=== PATIENT | female | born 1965 | race Caucasian/White ===

== ENCOUNTER → 2018-08-30 | Outpatient (CLI) | payer BC ==
[~2018-08-30] VITALS: Ht 259.1 cm; Wt 97.5 kg
[~2018-08-30] MED LIST: AMOVIG IM; B COMPLEX1 EACH PO; CALCIUM 500 +1 EAC5 PO; CAMBIA50 MG PO; CENTRUM SILVER1 EAC4 PO; CO Q-10100 MG PO; MAGOX 400400 MG PO; NASAL RINSE NASAL; NEURONTIN 300300 M1 PO; PREVACID30 MG PO; PROPRANOLOL 1010 MG PO; VENLAFAXINE HCL25 MG PO; ZEMBRACE S3 MG/0.5 M SUBQ
--- NOTE | ~2018-08-30 | EKG ---
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 : 1965 Requested By: Dina Lee Order Number: [id number] MD: Andrea Jane Measurements Intervals [place] Rate: 145 P: 29 AR: 102 QRS: 16 QRSD: 118 T: QT: 247 QTc: 384 Interpretive Statements Sinus tachycardia Nonspecific intraventricular conduction delay Artifact in lead(s) I,II,III,aVR,aVL,aVF,V1,V2,V3,V4,V5,V6 No previous ECG available for comparison Electronically Signed On 08-31-2018 17:03:25 CDT by Andrea Jane [email or web address] <ELECTRONICALLY SIGNED> By: Andrea Jane MD 08/31/18 [id number] Andrea Jane MD /EPI
--- NOTE | ~2018-08-30 | PATH ---
[facility] [place] [address] PATHOLOGY RPT PROCEDURE Name: BENITO SEALS Room #: REG ANITA Herrera.#: [id number] Admission: 08/30/18 Date of : 65 Discharge: Report #: [id number] Path Case #: [id number] [facility] Accession Number: [id number] . 01 Material submitted: . ASCENDING COLON POLYPS X 9 . 01 Clinical history: . Screening . 02 Diagnosis: Colonic mucosa "ascending colon biopsy": - Fragments of tubular adenoma. - There is no evidence of high-grade dysplasia or malignancy. - Other fragments reveal polypoid colonic mucosa with prominent lymphoid follicle. - There is no evidence of atypia or malignancy. (SHA:sienna; 08/31/2018) QMS/08/31/2018 . 02 Electronically signed: . Luis Dumont MD, Pathologist NPI- [id number] . 01 Gross description: . The specimen is received in formalin, labeled "Benito Seals, ascending colon polyps" and consists of multiple fragments of soft mensah-brown tissue measuring 1.6 x 0.8 x 0.3 cm in aggregate which are entirely submitted in A1. (SDY; 08/30/2018) SYU/SYU . 02 Pathologist provided ICD-10: D12.2 . 02 CPT . 923948 Specimen Comment: A courtesy copy of this report has been sent to Specimen Comment: [phone], . Specimen Comment: Report sent to / DR BASS Specimen Comment: A duplicate report has been generated due to demographic updates. Performed at: [address] [id number] MD Randy Johnson MD Phone: [phone] Performed at: [address] [address] PATHOLOGY RPT PROCEDURE Name: BENITO SEALS Room #: REG CLI [id number] Admission: 08/30/18 Date of : 65 Discharge: Report #: [id number] Path Case #: [id number] Lab[address] [id number] MD Dolly Veronica MD Phone: [phone]
== END | disposition home or self-care (01) ==
LOC: GI 06:46
DX: Z12.11 Encounter for screening for malignant neoplasm of colon (principal); D12.3 Benign neoplasm of transverse colon; G47.33 Obstructive sleep apnea (adult) (pediatric); G43.909 Migraine, unspecified, not intractable, without status migrainosus; K21.9 Gastro-esophageal reflux disease without esophagitis; Z98.890 Other specified postprocedural states; Z88.8 Allergy status to other drugs, medicaments and biological substances; Z79.899 Other long term (current) drug therapy
CPT/HCPCS: 62110; 62900